=== PATIENT | female | born 1950 | race Caucasian/White ===

== ENCOUNTER 2017-08-20 16:21 | Emergency (ER) | payer OTHER, MEDICARE ==
[~2017-08-20] VITALS: Ht 157.5 cm; Wt 93.2 kg
[~2017-08-20 16:21] MED LIST: CLOBETASOL PROP60 G1 TP; CRANBERRY200 MG PO; GLIMEPIRIDE4 MG PO; LYSINE1000 MG PO; METFORMIN HCL500 M1 PO; MINERALS; PROAIR HFA8.5 GM IH
[2017-08-20 18:50] LABS: HEMATOCRIT 40.3 % (36.0-46.0); HEMOGLOBIN 13.4 G/DL (11.9-15.5); MCH 28.8 PG (29.0-34.0); MCHC 33.3 G/DL (30.0-36.0); MCV 86.5 FL (83-99); PLATELET COUNT 252 K/uL (156-360); RBC DIS.WIDTH-SD 40.7 % (39-53); RED BLOOD COUNT 4.66 M/uL (3.80-5.20); WHITE BLOOD COUNT 7.8 K/uL (4.1-10.2)
[2017-08-20 18:59] LABS: CHLORIDE 103 mEq/L (99-109); POTASSIUM 4.1 mEq/L (3.7-5.4); SODIUM 140 mEq/L (136-147)
[2017-08-20 19:04] LABS: CREATININE 0.9 mg/dL (0.6-1.3); GFR ESTIMATE (CALCULATED) > 59 mL/min/; SERUM ETHYL ALCOHOL < 10 mg/dL
[2017-08-20 19:05] LABS: UREA NITROGEN (BUN) 17 mg/dL (9-23)
[2017-08-20 19:09] LABS: GLUCOSE 464 mg/dL (70-99)
[2017-08-20] MEDS ORDERED: FLEXERIL10 MG PO (21:35)
[2017-08-20] MEDS ORDERED: NORCO 5/3251 TABLET PO (21:35)
[2017-08-20 21:53] VITALS: BP 150/72
== END 2017-08-20 22:11 | disposition home or self-care (01) ==
LOC: EME 16:21
PROVIDERS: Emergency Medicine Emergency Medical Services
DX: S09.90XA Unspecified injury of head, initial encounter (principal); S16.1XXA Strain of muscle, fascia and tendon at neck level, initial encounter; E11.65 Type 2 diabetes mellitus with hyperglycemia; S30.0XXA Contusion of lower back and pelvis, initial encounter; R51 Headache; W01.0XXA Fall on same level from slipping, tripping and stumbling without subsequent striking against object, initial encounter; Z91.19 Patient's noncompliance with other medical treatment and regimen; Z79.84 Long term (current) use of oral hypoglycemic drugs; I10 Essential (primary) hypertension; J45.909 Unspecified asthma, uncomplicated; Z88.8 Allergy status to other drugs, medicaments and biological substances; Z87.891 Personal history of nicotine dependence
CPT/HCPCS: 70450; 80048; 85027; 99281; 99285; G0480; J7040